=== PATIENT | female | born 1990 | race Caucasian/White ===

== ENCOUNTER 2020-12-04 06:07 | Day surgery (SDC) | payer SELFPAY ==
[2020-12-01 10:20] VITALS: BMI 28.9
[2020-12-04] MEDS ORDERED: ONDANSETRON 4 MG/2 ML VIAL IVPUSH PRN ×2 (06:49→12:19)
[2020-12-04] MEDS ORDERED: oxyCODONE HCL 5 MG TABLET PO PRN (06:49)
[2020-12-04] MEDS ORDERED: ROCURONIUM BROMIDE 50 MG/5 ML SYRINGE ONE (06:56)
[2020-12-04] MEDS ORDERED: SUCCINYLCHOLINE CHLORIDE 200 MG/10 ML SYRINGE ONE (06:56)
[2020-12-04] MEDS ORDERED: PROPOFOL 20 ML ONE ×2 (06:56→09:45)
[2020-12-04] MEDS ORDERED: MIDAZOLAM HCL 2 MG/2 ML SINGLE DOSE VIAL ONE ×2 (06:56)
[2020-12-04] MEDS ORDERED: LACTATED RINGERS SOLUTION 1,000 ML IV SCH ×2 (07:00→12:30)
[2020-12-04] MEDS ORDERED: BUPIVACAINE HCL/EPINEPHRINE/PF 30 ML VIAL IJ ONE (07:40)
[2020-12-04] MEDS ORDERED: LIDOCAINE HCL 2% (20ML MULTI-DOSE VIAL) ONE ×2 (07:40→07:47)
[2020-12-04] MEDS ORDERED: EPINEPHrine/PF 1 MG/1 ML (1:1,000) AMPULE ONE ×2 (07:40→07:46)
[2020-12-04] MEDS ORDERED: SODIUM BICARBONATE 8.4% 50 MEQ/50 ML VIAL ONE ×2 (07:46→08:36)
[2020-12-04] MEDS ORDERED: ONDANSETRON 4 MG/2 ML VIAL ONE ×3 (08:12→11:57)
[2020-12-04] MEDS ORDERED: DEXAMETHASONE SOD PHOSPHATE 4 MG/1 ML VIAL ONE (08:12)
[2020-12-04] MEDS ORDERED: ACETAMINOPHEN 325 MG TABLET (FP) PO PRN (12:19)
[2020-12-04] MEDS ORDERED: ACETAMINOPHEN 325 MG TABLET (FP) ONE (13:13)
[2020-12-04] MEDS: oxyCODONE HCL 5 MG TABLET ONE ×2 (13:15→14:50)
[2020-12-04 13:23] VITALS: PULSE 65
[2020-12-04 13:26] VITALS: BP 126/74
[2020-12-04] MEDS ORDERED: oxyCODONE HCL 5 MG TABLET ONE (14:45)
[2020-12-04 15:02] VITALS: TEMP 98
== END 2020-12-04 15:19 | disposition home or self-care (01) ==
LOC: FASU 06:07
PROVIDERS: ATTEND Plastic Surgery
CPT/HCPCS: 81025; 94760